=== PATIENT | female | born 1950 | race Caucasian/White ===

== ENCOUNTER → 2020-10-23 | Outpatient (CLI) | payer MEDICARE, OTHER ==
[2020-10-23 17:06] LABS: APPEARANCE,URINE CLEAR (CLEAR); BILIRUBIN,URINE NEGATIVE (NEGATIVE); UA COLOR YELLOW (YELLOW); UROBILINOGEN,URINE NORMAL (NEGATIVE)
== END | disposition home or self-care (01) ==
LOC: NPLAB 15:23
PROVIDERS: ATTEND Nurse Practitioner Family
DX: Z79.899 Other long term (current) drug therapy (principal)
CPT/HCPCS: 81000

== ENCOUNTER → 2020-10-23 | Outpatient (CLI) | payer MEDICARE, OTHER ==
--- NOTE | 2020-10-23 15:14 | DIREP ---
PROCEDURE:CHEST 2 VIEWS COMPARISON:[facility], CT, CT CHEST W/CONTRAST, 12/24/2018, 09:45 AM. [facility], CR, XRAY CHEST 2 VWS, 12/24/2018, 09:33 AM. INDICATIONS:I10 HTN, R05 COUGH FINDINGS: LUNGS/PLEURA:No significant pulmonary parenchymal abnormalities. No effusions. Minimal left basilar scar. No pneumothorax VASCULATURE:Normal. Unremarkable pulmonary vasculature. CARDIAC:Normal. No cardiac silhouette abnormality or cardiomegaly. MEDIASTINUM:Normal. No visible mass or adenopathy. BONES:Normal. No fracture or visible bony lesion. OTHER:Negative. CONCLUSION:No acute findings. No significant interval change Dictated by: Dennis Figueroa MD on 10/23/2020 at 03:11 PM
== END | disposition home or self-care (01) ==
LOC: RAD 14:39
PROVIDERS: ATTEND Nurse Practitioner Family
DX: J98.4 Other disorders of lung (principal); I10 Essential (primary) hypertension; Z79.899 Other long term (current) drug therapy
CPT/HCPCS: 71046; 81000

== ENCOUNTER → 2021-02-08 | Outpatient (CLI) | payer MEDICARE ==
[2021-02-08 12:38] LABS: BASOPHIL # 0.1 10^3/uL (0.0-0.1); BASOPHIL % 0.7 % (0.0-0.2); EOSINOPHIL # 0.2 10^3/uL (0.0-0.2); EOSINOPHIL % 1.8 % (0.0-5.0); LYMPHOCYTES # 2.24 10^3/uL1 (1.0-4.8); LYMPHOCYTES % 25.5 % (24.0-44.0); MEAN CORP HGB 30.7 pg (26-34); MONOCYTES # 0.7 10^3/uL (0.3-0.8); MONOCYTES % 7.5 % (5.0-12.0); NEUTROPHIL # 5.6 10^3/uL (1.8-7.7); NEUTROPHILS % 64.3 % (41.0-85.0); PLATELET COUNT 296 10^3/uL (150-400); RED CELL DISTRIBUTION WIDTH 12.7 % (11.5-14.5)
[2021-02-08 12:45] LABS: BILIRUBIN,URINE NEGATIVE (NEGATIVE); UA COLOR YELLOW
[2021-02-08 12:57] LABS: CARBON DIOXIDE 29.3 mmol/L (20.0-32)
== END | disposition home or self-care (01) ==
LOC: LAB 12:18
PROVIDERS: ATTEND Nurse Practitioner Family
DX: I10 Essential (primary) hypertension (principal); R14.0 Abdominal distension (gaseous); G40.319 Generalized idiopathic epilepsy and epileptic syndromes, intractable, without status epilepticus; R74.8 Abnormal levels of other serum enzymes; R55 Syncope and collapse
CPT/HCPCS: 36415; 80053; 80164; 81003; 84439; 84443; 85025; 86677